=== PATIENT | male | born 1990 | race African-American/Black ===

== ENCOUNTER → 2018-12-30 02:01 | Emergency (ER) | payer MEDICAID, OTHER ==
[~2018-12-30 02:01] MED LIST: Acetaminophen TAB* 325 MG PO ONE; Ketorolac INJ* 15 MG/ML 1 ML VIAL IV PUSH ONE; NS 0.9% 1000 ML** 1,000 ML IV ONE
--- OUTSIDE RECORDS SUMMARY | 2018-12-30 02:28 | XMS REPORT | Continuity of Care Document ---
:1990 External Reference #:[id number] Author Name Maryellen García O.D. Address [address] [place] [address] Care Team Providers Name Role Phone Maryellen García O.D. Care Team Information Quebracho Tanner Unavailable Payers Date Identification Numbers Payment Provider Subscriber Policy Number: [id number] [employer] [place] PayID: [id number] [address] [place] [address] Policy Number: [id number] [facility] [employer] [place] PayID: [id number] [address] [place] [phone] Advance Directives Description No Information Available Problems Active Problems Provider Date Myopia Maryellen García O.D. Onset: 11/18/2018 Hypoplasia of the optic nerve Maryellen García O.D. Onset: 11/18/2018 Degenerative progressive high myopia Maryellen García O.D. 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 Employment ETOH Use Occasionally consumes alcohol Tobacco Use Start: Unknown Light tobacco smoker (10 or fewer cigarettes/day) Recreational Drug Use Denies Drug Use Smoking Status Reviewed: 11/24/18 Light tobacco smoker (10 or fewer cigarettes/day) Allergies, Adverse Reactions, Alerts Active Allergies Reaction Severity Comments Date Seafood 11/18/2018 Medications Description No Active Medications Immunizations Description No Information Available Vital Signs Description No Information Available Results Description No Information Available Procedures Date Code Description Status 12/02/2018 104 Insertion And Removal Training Completed 11/25/2018 104 Insertion And Removal Training Completed 11/25/2018 102 Level 2 Fit RGP/Soft Toric/Bifocal/Monovision/Extended Completed Wear 11/24/2018 16602 Scanning Computerized Opthalmic Diagnostic Posterior Seg Completed Retina 11/24/2018 00742 Est Patient Comprehensive Exam Completed 11/18/2018 83323 New Patient Comprehensive Exam Completed Encounters Description No Information Available Plan of Treatment 11/24/2018 - Isaías Miller M.D.H44.23 Degenerative myopia, bilateralComments :Smoking can increase the risk of developing or worsening any eye related disease, as well as affect your overall health. 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 García for [facility]
--- OUTSIDE RECORDS SUMMARY | 2018-12-30 02:28 | XMS REPORT | Continuity of Care Document ---
:1990 External Reference #:[id number] Author Name Maryellen García O.D. Address [address] [place] [address] Care Team Providers Name Role Phone Maryellen García O.D. Care Team Information Manager Trust Unavailable Payers Date Identification Numbers Payment Provider Subscriber Policy Number: [id number] [employer] [place] PayID: [id number] 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 García for [facility]
--- OUTSIDE RECORDS SUMMARY | 2018-12-30 02:28 | XMS REPORT | Continuity of Care Document ---
:1990 External Reference #:[id number] Author Name Maryellen García O.D. Address [address] [place] [address] Care Team Providers Name Role Phone Maryellen García O.D. Care Team Information District Customs Director Unavailable Payers Date Identification Numbers Payment Provider Subscriber Policy Number: [id number] [employer] [place] PayID: [id number] [address] [place] [address] Policy Number: [id number] [facility] [employer] [place] PayID: [id number] [address] [place] [phone] Advance Directives Description No Information Available Problems Date Description Provider Status Onset: 11/18/2018 Myopia Maryellen García O.D. Active Onset: 11/18/2018 Hypoplasia of the optic nerve Maryellen García O.D. Active Onset: 11/18/2018 Degenerative progressive high Maryellen García O.D. Active myopia Onset: 11/18/2018 Retinal lattice degeneration Maryellen García O.D. 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 Employment ETOH Use Occasionally consumes alcohol Tobacco Use Start: Unknown Light tobacco smoker (10 or fewer cigarettes/day) Recreational Drug Use Denies Drug Use Smoking Status Reviewed: 11/24/18 Light tobacco smoker (10 or fewer cigarettes/day) Allergies, Adverse Reactions, Alerts Date Description Reaction Status Severity Comments 11/18/2018 Seafood Active Medications Description No Active Medications Immunizations Description No Information Available Vital Signs Description No Information Available Results Description No Information Available Procedures Date Code Description Status 11/25/2018 104 Insertion And Removal Training Completed 11/25/2018 102 Level 2 Fit RGP/Soft Toric/Bifocal/Monovision/Extended Completed Wear 11/24/2018 33533 Scanning Computerized Opthalmic Diagnostic Posterior Seg Completed Retina 11/24/2018 47494 Est Patient Comprehensive Exam Completed 11/18/2018 47786 New Patient Comprehensive Exam Completed Encounters Description [...] you do not start.H47.033 Optic nerve hypoplasia, [id number] Lattice degeneration of retina, left eyeH52.13 Myopia, bilateralComments:You have Myopia , or near sightedness.Follow up:As scheduled with Dr. García for [facility]
--- NOTE | 2018-12-30 02:32 | ED ---
Respiratory - HPI Summary HPI Summary: This patient is a 28 year old M presenting to [facility] with a chief complaint of an upper respiratory complaint since 2 days ago. Patient reports fever, coughing (productive with white sputum), headache, and SOB. He is a smoker. Patient takes no regular medications and took no medications today for his symptoms. - History of Current Complaint Chief Complaint: EDUpperRespComplaint Stated Complaint: FEVER AND COUGHING PER PT Time Seen by Provider: 12/30/18 02:24 Hx Obtained From: Patient Onset/Duration: Sudden Onset, Lasting Days - 2 days ago, Still Present Pain Intensity: 0 Character: Cough (Productive) Sputum Color: White Associated Signs and Symptoms: Fever, SOB - Allergy/Home Medications Allergies/Adverse Reactions: Allergies Allergy/AdvReac Type Severity Reaction Status Date / Time No Known Allergies Allergy Verified 12/30/18 02:08 PMH/Surg Hx/FS Hx/Imm Hx Cardiovascular History: Denies: Hx Hypertension Sensory History: Denies: Hx Deafness - Surgical History Surgery Procedure, Year, and Place: None Infectious Disease History: No Infectious Disease History: Denies: History Other Infectious Disease, Traveled Outside the in Last 30 Days - Family History Known Family History: Negative: Cardiac Disease, Hypertension - Social History Alcohol Use: Weekly Substance Use Type: Reports: None Hx Tobacco Use: Yes Smoking Status (MU): Heavy Every Day Tobacco Smoker Review of Systems Positive: Fever Positive: Shortness Of Breath, Cough - productive, white sputum Positive: Headache All Other Systems Reviewed And Are Negative: Yes Physical Exam - Summary Physical Exam Summary: VITAL SIGNS: Reviewed. GENERAL: Patient is a well-developed and nourished MALE who is lying comfortable in the stretcher. Patient is not in any acute respiratory distress. HEAD AND FACE: No signs of trauma. No ecchymosis, hematomas or skull depressions. No sinus tenderness. EYES: PERRLA, EOMI x 2, No injected conjunctiva, no nystagmus. EARS: Hearing grossly intact. Ear canals and tympanic membranes are within normal limits. MOUTH: Pharyngeal erythema with no exudates. NECK: Supple, trachea is midline, no adenopathy, no JVD, no carotid bruit, no c- spine tenderness, neck with full ROM. CHEST: Symmetric, no tenderness at palpation LUNGS: Clear to auscultation bilaterally. No wheezing or crackles. CVS: Regular rate and rhythm, S1 and S2 present, no murmurs or gallops appreciated. ABDOMEN: Soft, non-tender. No signs of distention. No rebound, no guarding, and no masses palpated. Bowel sounds are normal. EXTREMITIES: FROM in all major joints, no edema, no cyanosis or clubbing. NEURO: Alert and oriented x 3. No acute neurological deficits. Speech is normal and follows commands. SKIN: Dry and warm Triage Information Reviewed: Yes Vital Signs On Initial Exam: Initial Vitals Temp Pulse Resp BP Pulse Ox 101.4 F 98 16 155/87 99 12/30/18 02:05 12/30/18 02:05 12/30/18 02:05 12/30/18 02:05 12/30/18 02:05 Vital Signs Reviewed: Yes Diagnostics - Vital Signs Vital Signs Temp Pulse Resp BP Pulse Ox 12/30/18 02:14 100 F 12/30/18 02:05 101.4 F 98 16 155/87 99 - Laboratory Result Diagrams: 12/30/18 02:34 12/30/18 02:34 Lab Statement: Any lab studies that have been ordered have been reviewed, and results considered in the medical decision making process. - Radiology Chest X-Ray Radiology Interpretation Completed By: ED Physician Summary of Radiographic Findings: 03:15. No acute processes. Pending official report. Disposition - Course Course Of Treatment: This patient is a 28 year old M presenting to [facility] with a chief complaint of an upper respiratory complaint since 2 days ago. He tested negative for the flu and for strep. Patient will be d/c with a dx of viral syndrome and instructed to follow up with the [facility] within 3 days. - Diagnoses Provider Diagnoses: Viral syndrome Discharge - Sign-Out/Discharge Documenting (check all that apply): Patient Departure - D/C home Patient Received Moderate/Deep Sedation with Procedure: No - Discharge Plan Condition: Stable Disposition: HOME Prescriptions: Ibuprofen TAB* [Motrin TAB* 800 MG] 800 mg PO Q6H PRN #30 tab PRN Reason: Fever/Pain Patient Education Materials: Viral Syndrome (ED) Forms: *Work Release Referrals: [facility] [Outside] - 3 Days Additional Instructions: Follow up with the [facility] within 3 days. PLEASE RETURN TO THE ED IMMEDIATELY FOR WORSENING OR CONCERNING SYMPTOMS. - Attestation Statements Document Initiated by Scribe: Yes Documenting Scribe: Todd Patel Provider For Whom Scribe is Documenting (Include Credential): John Martinez MD Scribe Attestation: I, Todd Patel, scribed for John Martinez MD on 12/30/18 at 0331. Status of Scribe Document: Ready
[2018-12-30 02:52] LABS: ABS Basophils 0.1 10^3/ul (0-0.2); ABS Eosinophils 0.2 10^3/ul (0-0.6); ABS Lymphocytes 0.9 10^3/ul (1.0-4.8); ABS Monocytes 0.9 10^3/ul (0-0.8); ABS Neutrophils 2.1 10^3/ul (1.5-7.7); ABS Nucleated RBC 0 10^3/ul; Eosinophil % 4.2 %; Hematocrit 46 % (36-46); Hemoglobin 14.9 g/dL (14.0-18.0); Lymphocyte % 22.3 %; Mean Corpuscular HGB Conc 33 g/dL (31-36); Mean Corpuscular Hemoglobin 27 pg (27-31); Mean Corpuscular Volume 82 fL (80-94); Mean Platelet Volume 8.7 fL (7.4-10.4); Nucleated Red Blood Cells % 0.1; Platelet Count 137 10^3/uL (150-450); Red Blood Count 5.55 10^6 /uL (4.18-5.48); Red Cell Distribution Width 15 % (10.5-15); White Blood Count 4.2 10^3/uL (3.5-10.8)
[2018-12-30 03:10] LABS: Rapid Strep Molecular Negative (Negative)
[2018-12-30 03:11] LABS: Albumin 4.3 g/dL (3.2-5.2); Albumin/Globulin Ratio 1.6 (1-3); BUN/Creatinine Ratio 8.3 (8-20); C Reactive Protein 11.58 mg/L (<8.01); EGFR Non-African American 52.9 (>60); Globulin 2.7 g/dL (2-4); Potassium 3.9 mmol/L (3.5-5.0); Total Bilirubin 0.3 mg/dL (0.2-1.0)
[2018-12-30 03:15] LABS: Influenza A Molecular NEGATIVE (Negative); Influenza B Molecular NEGATIVE (Negative)
[2018-12-30 03:45] VITALS: BP 134/76
== END | disposition home or self-care (01) ==
LOC: ED 02:01
DX: B34.9 Viral infection, unspecified (principal); Z72.0 Tobacco use
CPT/HCPCS: 36415; 71045; 80053; 85025; 86140; 86703; 87040; 87651; 96361; 96374; 99282; A9270-GY; J1885

== ENCOUNTER 2019-02-15 10:43 | Emergency (ER) | payer OTHER ==
--- OUTSIDE RECORDS SUMMARY | 2019-02-15 11:06 | XMS REPORT | Continuity of Care Document ---
:1990 External Reference #:[id number] Author Name Maryellen García O.D. Address [address] [place] [address] Care Team Providers Name Role Phone Maryellen García O.D. 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 [place] [address] Policy Number: [id number] 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 García for [facility]
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
[2019-02-15 13:07] VITALS: BP 138/77
== END 2019-02-15 13:06 | disposition home or self-care (01) ==
LOC: ED 10:43
DX: S16.1XXA Strain of muscle, fascia and tendon at neck level, initial encounter (principal); S39.012A Strain of muscle, fascia and tendon of lower back, initial encounter; M54.5 Low back pain; M54.2 Cervicalgia; F17.210 Nicotine dependence, cigarettes, uncomplicated; V43.52XA Car driver injured in collision with other type car in traffic accident, initial encounter; Y92.9 Unspecified place or not applicable
CPT/HCPCS: 72050; 72110; 99282